=== PATIENT | female | born 1955 | race Caucasian/White ===

== ENCOUNTER 2016-06-28 13:17 | Emergency (ER) | payer OTHER ==
[2016-06-28 13:22] VITALS: TEMP 97.5
[2016-06-28] MEDS ORDERED: LIDOCAINE VIS-MYLANTA 30 ML UD PO ONE (13:27)
[2016-06-28] MEDS ORDERED: ASPIRIN TABLET 325 MG TAB PO ONE (13:27)
--- NOTE | 2016-06-28 13:45 | RAD ---
EXAM DESCRIPTION: Chest,2 Views CLINICAL HISTORY: chest pain COMPARISON: None FINDINGS: Cardiac silhouette is within normal limits. There is no focal parenchymal or pleural disease. There is no acute osseous process visualized. IMPRESSION: No evidence of acute cardiopulmonary disease. Electronically signed by: Eduin London MD 06/28/2016 1:43 PM CDT
--- NOTE | 2016-06-28 13:56 | RAD ---
EXAM DESCRIPTION: Abdomen Flat Upright CLINICAL HISTORY: chest pressure COMPARISON: None FINDINGS: Supine and upright images of the abdomen were submitted. Calcifications within the pelvis may represent phleboliths. There is no free air in the abdomen. There is no evidence of bowel obstruction. IMPRESSION: No acute abnormalities. Electronically signed by: Eduin London MD 06/28/2016 1:55 PM CDT
[2016-06-28] MEDS ORDERED: POTASSIUM CHLORIDE ELIXIR 20 MEQ/15 ML UD PO ONE (14:01)
[2016-06-28] MEDS ORDERED: NITROGLYCERIN 0.4 MG 25 EA TAB SL ONE (15:13)
[2016-06-28] MEDS ORDERED: CLOPIDOGREL 75 MG TAB PO ONE (15:27)
[2016-06-28] MEDS ORDERED: ENOXAPARIN SODIUM 40 MG/0.4 ML SYG SUBCU ONE (15:51)
[2016-06-28] MEDS ORDERED: ENOXAPARIN SODIUM 30 MG/0.3 ML SYG SUBCU ONE (15:51)
[2016-06-28] MEDS ORDERED: ENOXAPARIN SODIUM 60 MG/0.6 ML SYG SUBCU ONE (16:09)
--- NOTE | 2016-06-28 16:12 | ED.PDOC ---
History of Present Illness - General Chief Complaint: Chest Pain/UT Stated Complaint: chest discomfort Time Seen by Provider: 06/28/16 13:20 Source: patient Exam Limitations: no limitations - History of Present Illness Initial Comments: the patient is a 61-year-old female presenting to the emergency room with her the patient was passing through town going back to the [facility] where she lives when she started developing chest pain. She had chest pain for approximately one hour during the drive before they arrived here. Apparently for the last few days she's also been having some milder more stuttering-type chest pain. chest pain is primarily in the left chest with radiation to left shoulder and back. It is significant at the time of arrival at a 7 or 8 out of 10. No palpitations. No syncope or near syncope. No belching or reflux issues. The pain is not reproducible with movement or palpation. It is not made worse with twisting and turning or taking deep breaths. The patient's pain fails to improve with a GI cocktail. Her family history is positive for coronary artery disease starting in her parents in their early 60s. The patient does have a history of mild hypertension and some significant hypercholesterolemia. She does not have any known coronary artery disease herself prior to this. Timing/Duration: 1 hour Severity: moderate Improving Factors: nothing Worsening Factors: nothing Associated Symptoms: chest pain, shortness of breath Allergies/Adverse Reactions: Allergies Erythromycin Allergy (Verified 06/28/16 13:29) Hives Sulfa Antibiotics Allergy (Verified 06/28/16 13:29) Vomitting Home Medications: Ambulatory Orders Atorvastatin Calcium [Lipitor] 40 mg PO BEDTIME 06/28/16 Review of Systems - Review of Systems Constitutional: States: no symptoms reported EENTM: States: no symptoms reported Respiratory: States: short of breath - mild Cardiology: States: chest pain Gastrointestinal/Abdominal: States: no symptoms reported Genitourinary: States: no symptoms reported Musculoskeletal: States: back pain Skin: States: no symptoms reported Neurological: States: no symptoms reported Endocrine: States: no symptoms reported All other Systems: No Change from Baseline Past Medical History (General) - Patient Medical History Hx Stroke: No Hx Cardiac Disorders: Yes - high cholestgerol Hx Congestive Heart Failure: No Hx Diabetes: No Hx MRSA: No Surgical History: other - Vaccination History Hx Influenza Vaccination: No Hx Pneumococcal Vaccination: No - Social History Hx Tobacco Use: No - Female History Patient is a Female of Child Bearing Age (10 -59 yrs old): No Family Medical History - Family History Mother Living Status: Hx Cardiac Disease: Yes Physical Exam - Physical Exam General Appearance: Alert, Anxious, No apparent distress Eye Exam: bilateral normal Ears, Nose, Throat: hearing grossly normal, normal ENT inspection, normal pharynx Neck: non-tender, full range of motion, supple Respiratory: chest non-tender, lungs clear, normal breath sounds, no respiratory distress, no accessory muscle use Cardiovascular/Chest: normal peripheral pulses, regular rate, rhythm, no edema Peripheral Pulses: radial,right: 2+, radial,left: 2+, dorsalis pedis,right: 2+, dorsalis pedis,left: 2+, posterior tibialis,right: 2+, posterior tibialis,left: 2+ Gastrointestinal/Abdominal: normal bowel sounds, non tender, soft Rectal Exam: deferred Back Exam: normal inspection, no CVA tenderness, no vertebral tenderness Extremity: normal range of motion, non-tender, normal inspection, no pedal edema , normal capillary refill Neurologic: alert, normal mood/affect, oriented x 3 Skin Exam: normal color Comments: Vital Signs - 24 hr 06/28/16 06/28/16 06/28/16 13:18 13:56 14:08 Temperature 97.5 F L Pulse Rate [ 96 H 87 86 Apical] Respiratory 20 16 20 Rate Blood Pressure 169/93 155/89 154/89 [Left Arm] O2 Sat by Pulse 96 96 97 Oximetry 06/28/16 06/28/16 15:05 15:28 Temperature Pulse Rate [ 86 106 H Apical] Respiratory 20 20 Rate Blood Pressure 133/86 126/84 [Left Arm] O2 Sat by Pulse 96 96 Oximetry Progress - Progress Progress: 06/28/16 16:13 the patient is a 61-year-old female presenting to the emergency room secondary to chest pain that is concerning for a cardiac origin based on the clinical presentation as well as the rapid relief with nitroglycerin. EKG is reassuring. The first set of cardiac enzymes is negative however it was obtained less than an hour and a half after significant symptoms started. She will need repeats of course. Risk factors include her family history as well as some history of high blood pressure and hypercholesterolemia. Transferring for cardiac evaluation. Of note, there was approximately a 30 point systolic drop in blood pressure with the nitroglycerin tablet. - Results/Orders Results/Orders: Laboratory Tests 06/28/16 06/28/16 06/28/16 13:29 13:33 13:33 WBC 6.5 RBC 5.20 Hgb 14.3 Hct 43.7 MCV 84.0 MCH 27.5 MCHC 32.7 L RDW 13.1 Plt Count 232 MPV 8.2 Absolute Neuts (auto) 3.30 Absolute Lymphs (auto) 2.40 Absolute Monos (auto) 0.60 Absolute Eos (auto) 0.10 Absolute Basos (auto) 0.10 Neutrophils % 50.1 Lymphocytes % 37.4 Monocytes % 9.5 H Eosinophils % 2.1 Basophils % 0.9 PT INR PTT (SP) D-Dimer, Quantitative Sodium 139 Potassium 3.2 L Chloride 104 Carbon Dioxide 24 Anion Gap 14.2 BUN 16 Creatinine 0.54 L BUN/Creatinine Ratio 29.6 H Random Glucose 114 H Serum Osmolality 279.6 Calcium 9.4 Magnesium 2.3 Total Bilirubin 0.7 AST 22 ALT 21 Alkaline Phosphatase 62 Creatine Kinase 88 CK-MB (CK-2) 2.2 CK-MB (CK-2) % Not Reportable Troponin I < 0.02 B-Natriuretic Peptide 16.0 Serum Total Protein 8.3 H Albumin 5.1 Globulin 3.2 Albumin/Globulin Ratio 1.6 Amylase 50 Lipase 23 Serum HCG, Qual Urine Color Yellow Urine Appearance Clear Urine pH 6.5 Ur Specific [place] 1.015 Urine Protein Negative Urine Glucose (UA) Negative Urine Ketones Negative Urine Blood Trace-intact H Urine Nitrite Negative Urine Bilirubin Negative Urine Urobilinogen 0.2 Ur Leukocyte Esterase Negative Urine RBC 1-3 Urine WBC 0 Ur Epithelial Cells 1-3 Urine Bacteria 0 06/28/16 06/28/16 13:33 13:33 WBC RBC Hgb Hct MCV MCH MCHC RDW Plt Count MPV Absolute Neuts (auto) Absolute Lymphs (auto) Absolute Monos (auto) Absolute Eos (auto) Absolute Basos (auto) Neutrophils % Lymphocytes % Monocytes % Eosinophils % Basophils % PT 10.5 INR 0.930 PTT (SP) 29.5 D-Dimer, Quantitative < 230 Sodium Potassium Chloride Carbon Dioxide Anion Gap BUN Creatinine BUN/Creatinine Ratio Random Glucose Serum Osmolality Calcium Magnesium Total Bilirubin AST ALT Alkaline Phosphatase Creatine Kinase CK-MB (CK-2) CK-MB (CK-2) % Troponin I B-Natriuretic Peptide Serum Total Protein Albumin Globulin Albumin/Globulin Ratio Amylase Lipase Serum HCG, Qual Negative Urine Color Urine Appearance Urine pH Ur Specific [place] Urine Protein Urine Glucose (UA) Urine Ketones Urine Blood Urine Nitrite Urine Bilirubin Urine Urobilinogen Ur Leukocyte Esterase Urine RBC Urine WBC Ur Epithelial Cells Urine Bacteria Departure - Departure Clinical Impression: Unstable angina Disposition: Transfer to Hospital Home Medications: Ambulatory Orders Atorvastatin Calcium [Lipitor] 40 mg PO BEDTIME 06/28/16 Transfer to Outside Facility - Transfer Information Accepting Provider:: dr anguiano Accepting Facility: [facility] Reason for Transfer: required specialist not available
[2016-06-28 16:26] VITALS: BP 114/92; O2SAT 97
== END 2016-06-28 16:50 | disposition short-term general hospital (02) ==
LOC: ER 13:17
DX: I20.0 Unstable angina (principal); I10 Essential (primary) hypertension; E78.00 Pure hypercholesterolemia, unspecified; Z88.3 Allergy status to other anti-infective agents; Z82.49 Family history of ischemic heart disease and other diseases of the circulatory system; Z88.2 Allergy status to sulfonamides
CPT/HCPCS: 36415; 71020; 74010; 80053; 81001; 82150; 82550; 82553; 83690; 83735; 83880; 84484; 84703; 85025; 85379; 85610; 85730; 93005; J1650